=== PATIENT | female | born 1975 | race Caucasian/White ===

== ENCOUNTER 2016-11-28 22:02 | Emergency (ER) | payer OTHER ==
[~2016-11-28] VITALS: Ht 162.6 cm; Wt 90.7 kg
[~2016-11-28 22:02] MED LIST: ALPR.5T PO; ANTI DEPRESSANT; CITA10TA70 PO; CYCL10TA9 PO; ESCT10T; FRSM40T; HYDR-757 PO; KCL10CCR; LASIX; LEXAPRO; LISI-552 PO; METFORMIN; METO100T2 PO; METOPROLOL; MTF500T; MTP100TCR; NFBIOT1000; ONDN4T; PROP1TAB77; SELENIUM 200MCG; SPRN25T; TRM50T PO; XANAX
--- NOTE | 2016-11-28 22:15 | ED Lower Extremity ---
General Stated Complaint: L FOOT PAIN Source: patient Exam Limitations: no limitations History of Present Illness Time seen by provider: 22:05 Initial Comments Here with report of left foot and ankle pain after tripping upper curb today. She did land in the grass. Denies other injury or concerns. Pain is to the base of the fifth metatarsal and to the ankle area. Most of the pain is at that area of the foot. Onset: this evening Severity: moderate Pain/Injury Location: left foot, left ankle Method of Injury: fell, twisted Modifying Factors: Improves With Immobilization, Worse With Movement Allergies and Home Medications Allergies Coded Allergies: duloxetine (Verified Allergy, Unknown, 08/09/08) morphine (Verified Allergy, Unknown, PATIENT HAS TAKEN LORTAB W/O ISSUE, ) chest tightness and flushed face Home Medications Alprazolam 0.5 Mg Tab, 0.5 MG PO PRN PRN for ANXIETY, (Reported) as needed for anxiety Cyclobenzaprine HCl 10 Mg Tablet, 10 MG PO BID PRN for MUSCLE SPASMS, #20 Ref 0 Prescribed by: HADLEY RODRIGUEZ on 06/05/16 1049 Hydrocodone/Acetaminophen 1 Each Tablet, 1 EACH PO Q6H PRN for PAIN, #14 Ref 0 Prescribed by: HADLEY RODRIGUEZ on 06/05/16 1049 Lisinopril 20 Mg Tablet, 20 MG PO DAILY, (Reported) Metoprolol Tartrate 100 Mg Tablet, 100 MG PO BID, (Reported) [Anti Depressant] , Unknown Dose, (Reported) Constitutional: see HPI, No chills, No fever Respiratory: no symptoms reported Cardiovascular: no symptoms reported Musculoskeletal: see HPI, joint pain, joint swelling Skin: No change in color, No lesions Psychiatric/Neurological: No Symptoms Reported Past Ibreheq-Qygvei-Zlofxo Hx Patient Social History Alcohol Use: Occasionally Uses Recreational Drug Use: No Smoking Status: Current Everyday Smoker Type Used: Cigarettes Recent Foreign Travel: No Contact w/Someone Who Travel: No Recent Hopitalizations: No Immunizations Up To Date Tetanus Booster (TDap): Unknown Surgeries HX Surgeries: Yes Surgeries: Abdominal, Section Respiratory Hx Respiratory Disorders: No Cardiovascular Hx Cardiac Disorders: No (Boreline) Neurological Hx Neurological Disorders: No Reproductive System Hx Reproductive Disorders: No Genitourinary Hx Genitourinary Disorders: Yes (Sepsis with Kidney failure) Gastrointestinal Hx Gastrointestinal Disorders: Yes Gastrointestinal Disorders: Gastroesophageal Reflux, Liver Disease/Jaundice, Gall Bladder Disease Musculoskeletal Hx Musculoskeletal Disorders: No Endocrine Hx Endocrine Disorders: No HEENT HX ENT Disorders: No Loss of Vision: Denies Cancer Hx Cancer: No Psychosocial Hx Psychiatric Problems: Yes Behavioral Health Disorders: Anxiety, Depression Integumentary HX Skin/Integumentary Disorder: No Blood Transfusions Hx Blood Disorders: No Reviewed Nursing Assessment Reviewed/Agree w Nursing PMH: Yes Family Medical History Significant Family History: Heart Disease, Cancer, Diabetes, Hypertension Physical Exam Vital Signs Vital Sign - Last 12Hours 11/28/16 22:06 Temp 97.9 Pulse 101 Resp 20 B/P (MAP) 111/88 Pulse Ox 97 O2 Delivery Room Air Capillary Refill : General Appearance: WD/WN, no apparent distress Neck: full range of motion, supple Cardiovascular: regular rate, rhythm, no murmur Respiratory: lungs clear, normal breath sounds Knees: bilateral knee non-tender, bilateral knee normal inspection, bilateral knee normal range of motion, bilateral knee no evidence of injury Ankles: right ankle non-tender, right ankle normal inspection, right ankle normal range of motion, left ankle soft tissue tenderness, left ankle swelling ( at the base of the foot/lateral ankle area) Feet: left foot limited range of motion, left foot pain, left foot soft tissue tenderness, left foot swelling, left foot other (findings to the base of the fifth metatarsal and lateral aspect of the ankle) Neurologic/Tendon: normal sensation, normal motor functions, normal tendon functions Neurologic/Psychiatric: alert, oriented x 3 Skin: normal color, warm/dry, No ecchymosis Progress/Results/Core Measures Results/Orders My Orders Orders - JENNIFER GONZALEZ MD Foot, Left, 3 Views (11/28/16 22:11) Ankle, Left, 3 Views (11/28/16 22:11) Vital Signs/I&O Vital Sign - Last 12Hours 11/28/16 22:06 Temp 97.9 Pulse 101 Resp 20 B/P (MAP) 111/88 Pulse Ox 97 O2 Delivery Room Air Progress Note : Progress Note Seen and evaluated. X-ray left foot and ankle. No obvious acute fracture. Walking boot given. Follow-up instructions with orthopedic given. Discharged home with return precautions. Patient verbalize understanding instructions and agreement with plan. She has crutches at home due to many prior ankle injuries. Diagnostic Imaging Diagonstic Imaging: Xray Plain Films/CT/US/NM/MRI: ankle, other (foot) Comments Left ankle and foot x-rays show no acute fracture but question of avulsion-type bony fragments that appear old to the lateral aspect of the left foot. Departure Impression Impression: Primary Impression: Sprain and strain of foot Disposition: 01 HOME, SELF-CARE Condition: Stable Departure-Patient Inst. Decision time for Depature: 22:43 Referrals: PAU MALAGON MD, RICK D MD (PCP/Family) Primary Care Physician Patient Instructions: Ankle Sprain (DC), Sprain (DC) Add. Discharge Instructions: Follow-up with your doctor this week for recheck and further evaluation. You may follow-up with the orthopedist this week as well. Call his office on Wednesday for recheck and further evaluation. Return for worse pain, swelling, weakness, problems with numbness or tingling or other concerns as needed. You may use ice packs to the affected area 20 minutes per hour. Use elevation to reduce swelling. Use walking boot at all times while walking for the next several days and then as needed. You may use crutches as well to assist with balance and pain control. You may take ibuprofen 800 mg every 8 hours as needed for pain. You may take Tylenol 1000 mg every 8 hours as needed for pain. JENNIFER GONZALEZ MD November 28, 2016 22:15
[2016-11-28 22:47] VITALS: BP 0/0
--- NOTE | 2016-11-29 06:40 | Diagnostic Imaging Report ---
INDICATION: Injury. Pain. COMPARISON: None FINDINGS: 3 views of the left foot are obtained. No acute fracture, malalignment or osseous destructive process is seen. There is irregularity along the dorsal aspect of the distal talus which may be related to an old injury. Acute fracture is not suspected. There is plantar calcaneal spurring and minimal enthesopathy at the insertion of the Achilles tendon. IMPRESSION: No acute fracture is demonstrated. There is spurring of the os calcis. Dictated by: Dictated on workstation # [id number]
--- NOTE | 2016-11-29 06:47 | Diagnostic Imaging Report ---
INDICATION: Injury. Pain. COMPARISON: None FINDINGS: 3 views of the left ankle are obtained. No acute fracture, malalignment or osseous destructive process is seen. Joint spaces preserved. There is spurring of the os calcis. IMPRESSION: No acute fracture is demonstrated. Dictated by: Dictated on workstation # [id number]
== END 2016-11-28 22:47 | disposition home or self-care (01) ==
LOC: EDUNIT# 22:02 → ER 22:04
DX: S93.602A Unspecified sprain of left foot, initial encounter (principal); S96.902A Unspecified injury of unspecified muscle and tendon at ankle and foot level, left foot, initial encounter; M77.32 Calcaneal spur, left foot; I10 Essential (primary) hypertension; F17.210 Nicotine dependence, cigarettes, uncomplicated; Z79.899 Other long term (current) drug therapy; W01.0XXA Fall on same level from slipping, tripping and stumbling without subsequent striking against object, initial encounter; Y92.414 Local residential or business street as the place of occurrence of the external cause; Y99.8 Other external cause status
CPT/HCPCS: 73610; 73630; 99283